=== PATIENT | female | born 1995 | race Caucasian/White ===

== ENCOUNTER → 2017-03-06 | Outpatient (CLI) | payer OTHER | LOC: M SMT 14:17 | PROVIDERS: ATTEND Obstetrics & Gynecology | DX: Z36 Encounter for antenatal screening of mother (principal); Z3A.00 Weeks of gestation of pregnancy not specified ==

== ENCOUNTER → 2017-03-14 | Outpatient (REF) | payer OTHER | LOC: M LAB REF 16:50 | PROVIDERS: ATTEND Advanced Practice Midwife | DX: Z34.03 Encounter for supervision of normal first pregnancy, third trimester (principal) ==

== ENCOUNTER → 2017-03-27 | Outpatient (CLI) | payer OTHER ==
[~2017-03-27] MED LIST: ACET50TA PO; IBUP-1114 PO; PRENTAB9 PO
--- NOTE | 2017-03-27 12:59 | REP ---
OB ULTRASOUND: Real-time sonographic evaluation of gravid uterus performed utilizing transabdominal technique. There is a single living intrauterine gestation. Estimated gestational age is 38 weeks days by LMP, with EDC 04/08/2017. Today's measurements indicate appropriate growth. BPD 92 mm = 37 weeks 3 days, 39th percentile HC 330 mm = 37 weeks 4 days, 37th percentile AC 342 mm = 38 weeks 1 day, 47th percentile Femur length 74 mm = 37 weeks 5 days, 41st percentile HC/AC ratio 0.96 within normal range. Estimated weight 3334 grams, 52nd percentile. heart rate 147 beats per minute. Amniotic fluid within normal limits. EBEN 9.2 within normal range of 7.3 to 23.5. S/D ratio 2.46 within normal range of 1.6 to 2.6. RI 0.59. SEEN/GROSSLY UNREMARKABLE Lateral ventricles No Posterior fossa No Upper lip Yes Four-chamber heart Yes LVOT No RVOT No Stomach Yes Cord insertion Yes Three vessel cord Yes Kidneys Yes Bladder Yes Spine Yes Cervix is obscured by the cranium. position is vertex. Placenta: Posterior and grade 2 with no previa or abruption. Signed by Daniel Rice MD 03/27/2017 03:34 P
== END ==
LOC: M RAD 11:08
PROVIDERS: ATTEND Obstetrics & Gynecology
DX: O26.843 Uterine size-date discrepancy, third trimester (principal); Z3A.37 37 weeks gestation of pregnancy

== ENCOUNTER 2017-04-01 07:00 | Inpatient (IN) | payer OTHER ==
[2017-04-01] VITALS (49 sets, daily range): BP systolic 92–174; BP diastolic 56–100
[~2017-04-01] VITALS: Ht 177.8 cm; Wt 69.0 kg
[2017-04-01] MEDS ORDERED: LACTATED RINGER'S 1000 ML IV STA (07:55)
[2017-04-01] MEDS ORDERED: PROMETHAZINE INJ 25 MG/ML VIAL (J2550) IV ONE (08:00)
[2017-04-01] MEDS ORDERED: BUTORPHANOL 2 MG/ML INJ (J0595) IV ONE (08:00)
[2017-04-01 08:48] LABS: MEAN CORPUSCULAR HEMOGLOBIN 29.2 pg (27.0-33.0); MEAN CORPUSCULAR HGB CONC 34.4 g/dl (32.0-36.5); MEAN CORPUSCULAR VOLUME 84.9 fl (80.0-96.0); RED CELL DISTRIBUTION WIDTH 13.1 % (11.5-14.5); WHITE BLOOD COUNT 11.4 K/mm3 (4.0-10.0)
--- NOTE | 2017-04-01 08:59 | HPE ---
DATE OF ADMISSION: 04/01/2017 A 21-year-old 1, estimated date of delivery 04/08/2017, presents at 39 weeks with reports of contractions through the night, stronger this morning. Denies bleeding, loss of fluid. Fetus is active. Last normal menstrual period 05/29/2016 for an estimated date of delivery 03/11/2017. Sonogram at 6 weeks changed her date to 04/08/2017. Appropriate care, third trimester transferred to [facility], uncomplicated . No known drug allergies. MEDICAL-SURGICAL: Cholecystectomy and dental surgery. FAMILY HISTORY: Of hypertension and asthma. SOCIAL HISTORY: . Father of the baby present and supportive. Denies tobacco, alcohol, or drugs. OBJECTIVE: Prepregnancy weight 145 pounds, total weight gain 14 pounds. O+, antibody negative, rubella equivocal, [facility] ([facility]), hepatitis B, hepatitis C, HIV, gonorrhea, chlamydia all negative. 1-hour glucose 68. Group B Streptococcus is negative. Vital signs are stable. Heart rate is regular. Respirations are easy, breathing with contractions. Abdomen is soft, gravid, longitudinal lie. Uterine contractions 2-5 minutes apart and moderate. heart 135, moderate variability with accelerations. Sterile vaginal examination: 3+ centimeters, 90% effaced, -1 station, cephalic, and midline. ASSESSMENT: Primipara at term, early labor, category 1 tracing. PLAN: Admit. Report is given to Dr. Sin. Anticipate normal spontaneous vaginal .
[2017-04-01] MEDS ORDERED: FENTANYL 2MCG/ML ROPIVACAINE 0.2% IN 0.9% NACL 200ML IVBAG As Ordered ONE (10:02)
[2017-04-01] MEDS: LACTATED RINGER'S 1000 ML IV PRN ×2 (11:38→15:40)
[2017-04-01] MEDS ORDERED: diphenhydrAMINE INJ 50MG/ML VIAL (J1200) IV PRN (11:45)
[2017-04-01] MEDS ORDERED: ePHEDrine SULFATE 25 MG/5 ML(5MG/ML) SYRINGE IV PRN (11:45)
[2017-04-01] MEDS ORDERED: ONDANSETRON 4MG/2ML VIAL (J2405) IV PRN (11:45)
[2017-04-01] MEDS ORDERED: EPIDURAL COMMENT XX SCH (11:45)
[2017-04-01] MEDS ORDERED: EPIDURAL/PCA KEYS XX PRN (11:45)
[2017-04-01] MEDS ORDERED: FENTANYL/ROPIVACAINE/NACL BAG 200 ML EPIDURAL SCH (11:45)
[2017-04-01] MEDS ORDERED: REFRIGERATOR IV KEYS XX PRN (11:45)
[2017-04-01] MEDS ORDERED: NALOXONE INJ 0.4 MG/1 ML VIAL (J2310) IV PRN (11:45)
[2017-04-01] MEDS ORDERED: OXYTOCIN 30 UNITS IN 0.9% NaCl 500ML IV BAG (J2590) As Ordered ONE (14:21)
[2017-04-01] MEDS ORDERED: OXYTOCIN DRIP 30 UNITS in APPROPRIATE DILUENT 1 EA IV SCH ×2 (15:30→16:26)
[2017-04-01] MEDS ORDERED: RHOGAM 300 MCG (1500 IU) INJ (J2790) IM SCH (16:30)
[2017-04-01] MEDS ORDERED: ANUSOL HC CREAM 30GM TOP PRN (16:30)
[2017-04-01] MEDS ORDERED: MEASLES,MUMPS,RUBELLA VACCINE INJ (MMR-II) (90707) SC SCH (16:30)
[2017-04-01] MEDS ORDERED: METHYLERGONOVINE MALEATE 0.2 MG TAB PO PRN (16:30)
[2017-04-01] MEDS ORDERED: MOM 30ML SUSPENSION UDC PO PRN (16:30)
[2017-04-01] MEDS ORDERED: PROMETHAZINE 25 MG TAB PO PRN (16:30)
[2017-04-01] MEDS ORDERED: ACETAMINOPHEN 500 MG TAB PO PRN (16:30)
[2017-04-01] MEDS ORDERED: DIBUCAINE 1% OINTMENT 30GM TOP PRN (16:30)
[2017-04-01] MEDS ORDERED: DOCUSATE SODIUM 100 MG CAP PO PRN (16:30)
--- NOTE | 2017-04-01 16:55 | DN ---
DATE: 04/01/2017 DATE OF DELIVERY: 04/01/2017 TIME OF : 1607 GENDER: Female. SCORE: 8 AND 9 WEIGHT: 3632 grams or 8 pounds 0 ounces. ANESTHESIA: Epidural. LACERATIONS: None. COUNTS: 5 laparotomy sponges accounted for prior to and after delivery. DELIVERY NOTE: On the March, at 1607, Ms. Covington, a 21 year old, 1, now para 1 had a spontaneous vaginal delivery of a live born female infant, scores were 8 and 9. Weight was 8 pounds, 3632 grams, was delivered occiput anterior (OA) over an intact perineum. There was a nuchal cord, which was mainly reduced followed by delivery of right anterior shoulder, left posterior shoulder and corpus. Infant was then handed to mom with a good cry. Cord was then clamped times two, was cut by the father of the baby under my direction. Cord blood was then obtained. The placenta was then drained and delivered grossly intact. A premixed bag of 500 mL of normal saline with 30 units of Pitocin was then bolused along with uterine massage. The uterus was firm. On inspection, the cervix, vagina, perineum was grossly intact, is hemostatic. Mom and the baby recovered in stable condition. The couple decided to name their daughter, Nesha Parekh.
[2017-04-01] MEDS: IBUPROFEN 800 MG TAB PO PRN (18:38)
[2017-04-02] MEDS: IBUPROFEN 800 MG TAB PO PRN (04:20)
[2017-04-02 06:10] VITALS: BP 127/71
[2017-04-02] MEDS ORDERED: guaiFENesin DM *SUGAR FREE* 5ML**DIABETIC TUSSIN DM PO PRN (08:00)
[2017-04-02] MEDS: PRENATAL VITAMIN TAB PO SCH (09:00)
[2017-04-02 18:00] VITALS: BP 119/63
[2017-04-03 06:12] VITALS: BP 129/78
[2017-04-03] MEDS: PRENATAL VITAMIN TAB PO SCH (08:27)
[2017-04-03] MEDS ORDERED: IBUP-1114 PO (09:29)
[2017-04-03] MEDS ORDERED: ACET50TA PO (09:29)
[2017-04-03] MEDS ORDERED: PRENTAB9 PO (09:29)
== END 2017-04-03 11:45 | disposition home or self-care (01) | DRG 775 ==
LOC: M LDO 07:00 → M LDI 07:54 → M OBS 17:49
PROVIDERS: ADMIT Advanced Practice Midwife; ATTEND Obstetrics & Gynecology
PROC: 10E0XZZ Delivery of Products of Conception, External Approach (ICD-10-PCS; principal; 2017-04-01)
PROC: 10907ZC Drainage of Amniotic Fluid, Therapeutic from Products of Conception, Via Natural or Artificial Opening (ICD-10-PCS; 2017-04-01)
DX: O69.82X0 Labor and delivery complicated by other cord entanglement, without compression, not applicable or unspecified (principal); Z3A.39 39 weeks gestation of pregnancy; Z37.0 Single live birth

== ENCOUNTER → 2017-07-30 | Outpatient (REF) | payer OTHER | LOC: M LAB REF 12:58 | PROVIDERS: ATTEND Advanced Practice Midwife | DX: Z12.4 Encounter for screening for malignant neoplasm of cervix (principal) ==

== ENCOUNTER → 2018-02-09 | Outpatient (CLI) | payer OTHER ==
[2018-02-09 18:35] LABS: HCG, SERUM QUANTITATIVE 236 MIU/ML
== END ==
LOC: M SMT 13:06
DX: O20.0 Threatened abortion (principal)
CPT/HCPCS: 84702

== ENCOUNTER → 2018-02-11 | Outpatient (CLI) | payer OTHER ==
[2018-02-11 18:55] LABS: HCG, SERUM QUANTITATIVE 183 MIU/ML
== END ==
LOC: M SMT 13:05
DX: O20.0 Threatened abortion (principal)
CPT/HCPCS: 84702

== ENCOUNTER → 2018-02-16 | Outpatient (CLI) | payer OTHER ==
[2018-02-16 19:09] LABS: HCG, SERUM QUANTITATIVE 330 MIU/ML
== END ==
LOC: M SMT 13:02
DX: O02.1 Missed abortion (principal)
CPT/HCPCS: 84702

== ENCOUNTER → 2018-02-17 | Outpatient (REF) | payer OTHER | LOC: M LAB REF 20:38 | DX: O00.80 Other ectopic pregnancy without intrauterine pregnancy (principal) ==

== ENCOUNTER → 2018-02-18 | Outpatient (CLI) | payer OTHER ==
[2018-02-18 09:50] LABS: HCG, SERUM QUANTITATIVE 246 MIU/ML
== END ==
LOC: M LAB 09:05
DX: N93.8 Other specified abnormal uterine and vaginal bleeding (principal)
CPT/HCPCS: 84702

== ENCOUNTER 2018-02-20 06:36 | Day surgery (SDC) | payer OTHER ==
[~2018-02-20 06:36] MED LIST changes: -ACET50TA PO; -IBUP-1114 PO; +LR 1,000 ML IV; -PRENTAB9 PO
[2018-02-20] MEDS ORDERED: BUPIVACAINE HCL 0.25% 30 ML VIAL As Ordered (06:56)
[2018-02-20 07:03] LABS: HEMATOCRIT 39.4 % (36.0-47.0); HEMOGLOBIN 13.3 g/dl (12.0-15.5); MEAN CORPUSCULAR HEMOGLOBIN 28.8 pg (27.0-33.0); MEAN CORPUSCULAR HGB CONC 33.8 g/dl (32.0-36.5); MEAN CORPUSCULAR VOLUME 85.3 fl (80.0-96.0); PLATELET COUNT, AUTOMATED 210 10^3/uL (150-450); RED BLOOD COUNT 4.62 10^6/uL (4.00-5.40)
[2018-02-20] MEDS: LR 1,000 ML IV ×2 (07:08→08:37)
[2018-02-20] MEDS ORDERED: MIDAZOLAM INJ 2 MG/2 ML VIAL (J2250) As Ordered ×2 (07:14→07:15)
[2018-02-20] MEDS ORDERED: LIDOCAINE 2% INJ 100 MG/5 ML SDV (FOR ANES.) As Ordered (07:15)
[2018-02-20] MEDS ORDERED: dexameTHASONE 4 MG/ML 1ML VIAL (J1100) As Ordered ×2 (07:15→07:47)
[2018-02-20] MEDS ORDERED: ONDANSETRON 4MG/2ML VIAL (J2405) As Ordered ×2 (07:15→08:53)
[2018-02-20] MEDS ORDERED: ROCURONIUM BROMIDE 50 MG/5 ML VIAL As Ordered (07:15)
[2018-02-20] MEDS ORDERED: PROPOFOL 200 MG/20 ML VIAL As Ordered (07:15)
[2018-02-20] MEDS ORDERED: fentaNYL 250 MCG/5 ML INJECTION (J3010) As Ordered (07:16)
[2018-02-20] MEDS ORDERED: ePHEDrine SULFATE 25 MG/5 ML(5MG/ML) SYRINGE As Ordered (07:46)
[2018-02-20] MEDS ORDERED: KETOROLAC 60 MG/2 ML VIAL (J1885) As Ordered (07:48)
[2018-02-20] MEDS ORDERED: GLYCOPYRROLATE INJ 0.2 MG/ML 2 ML VIAL As Ordered (08:08)
[2018-02-20] MEDS ORDERED: NEOSTIGMINE 10 MG/10 ML VIAL (J2710) As Ordered (08:08)
[2018-02-20] MEDS ORDERED: HYDROmorphone HCL 2 MG/ML 1ML VIAL (J1170) As Ordered (08:10)
[2018-02-20] MEDS: ONDANSETRON 4MG/2ML VIAL (J2405) IV (09:00)
[2018-02-20] MEDS ORDERED: PERCOCET 5MG/325MG TAB PO (09:15)
[2018-02-20] MEDS ORDERED: LR 1,000 ML IV (09:15)
[2018-02-20] MEDS ORDERED: HYDROmorphone HCL 1 MG/ML SYRINGE (J1170) IV (09:15)
[2018-02-20] MEDS ORDERED: METOCLOPRAMIDE INJ 10MG/2ML VIAL (J2765) IV (09:15)
[2018-02-20] MEDS ORDERED: fentaNYL 100 MCG/2 ML INJECTION (J3010) IV (09:15)
[2018-02-20] MEDS: PERCOCET 5MG/325MG TAB PO (10:13)
== END 2018-02-20 11:48 | disposition home or self-care (01) ==
LOC: M SDC 06:36
DX: O00.101 Right tubal pregnancy without intrauterine pregnancy (principal); E16.2 Hypoglycemia, unspecified; K21.9 Gastro-esophageal reflux disease without esophagitis; G43.909 Migraine, unspecified, not intractable, without status migrainosus; F43.10 Post-traumatic stress disorder, unspecified; Z86.59 Personal history of other mental and behavioral disorders
CPT/HCPCS: 59151

== ENCOUNTER → 2018-05-11 | Outpatient (CLI) | payer OTHER ==
[2018-05-11 07:13] LABS: BASO % 0.6 % (0.0-1.0); EOS # 0.2 10^3/uL (0.0-0.50); EOS % 3.2 % (0.0-3.0); HEMATOCRIT 43.3 % (36.0-47.0); HEMOGLOBIN 14.4 g/dl (12.0-15.5); IMMATURE GRANULOCYTE % 0.3 % (0-3.0); LYMPH # 2.4 10^3/uL (1.5-6.5); LYMPH % 38.2 % (24.0-44.0); MEAN CORPUSCULAR HEMOGLOBIN 28.5 pg (27.0-33.0); MEAN CORPUSCULAR HGB CONC 33.3 g/dl (32.0-36.5); MEAN CORPUSCULAR VOLUME 85.7 fl (80.0-96.0); MONO # 0.5 10^3/uL (0.0-0.8); MONO % 7.5 % (0.0-5.0); NEUTROPHILS # 3.1 10^3/uL (1.8-7.7); NEUTROPHILS % 50.2 % (36.0-66.0); PLATELET COUNT, AUTOMATED 196 10^3/uL (150-450); RED BLOOD COUNT 5.05 10^6/uL (4.00-5.40); RED CELL DISTRIBUTION WIDTH 12.7 % (11.5-14.5); WHITE BLOOD COUNT 6.2 10^3/uL (4.0-10.0)
[2018-05-11 07:48] LABS: ALBUMIN 3.8 GM/DL (3.2-5.2); ALBUMIN/GLOBULIN RATIO 1.23 (1.00-1.93); ALKALINE PHOSPHATASE 58 U/L (45-117); ALT/SGPT 24 U/L (12-78); ANION GAP 9 MEQ/L (8-16); AST/SGOT 14 U/L (7-37); BILIRUBIN,TOTAL 0.5 MG/DL (0.2-1.0); BLOOD UREA NITROGEN 13 MG/DL (7-18); CALCIUM LEVEL 8.6 MG/DL (8.5-10.1); CARBON DIOXIDE LEVEL 25 MEQ/L (21-32); CHLORIDE LEVEL 108 MEQ/L (98-107); CHOLESTEROL LEVEL 152 MG/DL (<200); CHOLESTEROL RISK RATIO 3.377 (<5); CREATININE FOR GFR 0.78 MG/DL (0.55-1.30); FREE T4 0.99 NG/DL (0.76-1.46); GLOMERULAR FILTRATION RATE > 60.0 (>60); GLUCOSE, FASTING 88 MG/DL (70-100); HDL CHOLESTEROL 45 MG/DL (>40); LDL CHOLESTEROL 97.4 MG/DL (<100); NON-HDL-C 107 MG/DL; POTASSIUM SERUM 4.1 MEQ/L (3.5-5.1); SODIUM LEVEL 142 MEQ/L (136-145); THYROID STIMULATING HORMONE 0.941 uIU/ML (0.358-3.740); TOTAL PROTEIN 6.9 GM/DL (6.4-8.2); TRIGLYCERIDES LEVEL 48 MG/DL (<150)
[2018-05-11 07:57] LABS: ESTIMATED AVERAGE GLUCOSE 111 MG/DL (60-110); HEMOGLOBIN A1c 5.5 %
== END ==
LOC: M LAB 06:49
DX: Z13.220 Encounter for screening for lipoid disorders (principal)
CPT/HCPCS: 84443

== ENCOUNTER → 2018-06-02 | Outpatient (CLI) | payer OTHER ==
[2018-06-02 13:50] LABS: HCG, SERUM QUANTITATIVE 29372 MIU/ML
== END ==
LOC: M SMT 09:03
DX: N91.2 Amenorrhea, unspecified (principal)

== ENCOUNTER → 2018-06-04 | Outpatient (CLI) | payer OTHER ==
[2018-06-04 15:07] LABS: HCG, SERUM QUANTITATIVE 37777 MIU/ML
== END ==
LOC: M SMT 09:18
DX: N91.2 Amenorrhea, unspecified (principal)
CPT/HCPCS: 84702

== ENCOUNTER → 2018-07-20 | Outpatient (CLI) | payer OTHER ==
[2018-07-20 18:37] LABS: ADD MANUAL DIFFER YES; DIFF SLIDE NUMBER 278; HEMATOCRIT 39.3 % (36.0-47.0); HEMOGLOBIN 13.5 g/dl (12.0-15.5); MEAN CORPUSCULAR HEMOGLOBIN 29.3 pg (27.0-33.0); MEAN CORPUSCULAR HGB CONC 34.4 g/dl (32.0-36.5); MEAN CORPUSCULAR VOLUME 85.2 fl (80.0-96.0); PLATELET COUNT, AUTOMATED 193 10^3/uL (150-450); POSITIVE MORPH POS FLAG; RED BLOOD COUNT 4.61 10^6/uL (4.00-5.40); RED CELL DISTRIBUTION WIDTH 13.5 % (11.5-14.5); WHITE BLOOD COUNT 9.2 10^3/uL (4.0-10.0)
[2018-07-20 20:00] LABS: CHLAMYDIA DNA AMPLIFICATION NEGATIVE (NEGATIVE); GC DNA AMPLIFICATION NEGATIVE (NEGATIVE)
[2018-07-20 20:09] LABS: ATYPICAL LYMPH 7 % (0-5); EOSINOPHILS 2 % (0-5); LYMPHOCYTES 16 % (16-52); MONOCYTES 6 % (0-8)
[2018-07-20 20:10] LABS: BANDS 0 % (< 11); NEUTROPHILS 69 % (35-75); PLATELET ESTIMATE NORMAL (NORMAL)
[2018-07-22 13:15] LABS: HEPATITIS C VIRUS ABY INDEX 0.1 INDEX (<0.8)
[2018-07-22 13:15] LABS: HBsAg Prenatal NEGATIVE (NEGATIVE); HIV 1&2 SCREEN CENTAUR NEGATIVE (NEGATIVE); RUBELLA IgG QUALITATIVE IMMUNE (IMMUNE)
== END ==
LOC: M SMT 14:00
DX: Z3A.08 8 weeks gestation of pregnancy (principal); Z34.81 Encounter for supervision of other normal pregnancy, first trimester

== ENCOUNTER → 2018-08-18 | Outpatient (REF) | payer OTHER | LOC: M LAB REF 17:10 | DX: Z34.82 Encounter for supervision of other normal pregnancy, second trimester (principal); Z3A.00 Weeks of gestation of pregnancy not specified ==

== ENCOUNTER → 2018-08-27 | Outpatient (CLI) | payer OTHER | LOC: M SMT 14:31 | DX: Z36.89 Encounter for other specified antenatal screening (principal); Z3A.19 19 weeks gestation of pregnancy | CPT/HCPCS: 76811 ==

== ENCOUNTER → 2019-08-26 | Outpatient (REF) | payer OTHER ==
[~2019-08-26] MED LIST changes: +IBUP-1114 PO; -LR 1,000 ML IV; +MAPA500T2 PO; +OXYC1TAB23 PO; +PRENTAB55 PO; +PRENTAB9 PO; +VITA1TAB23 PO
== END ==
LOC: M LAB REF 17:09
PROVIDERS: ATTEND Physician Assistant
DX: R30.0 Dysuria (principal)